=== PATIENT | female | born 1965 | race American Indian/Alaskan Native ===

== ENCOUNTER 2019-09-06 14:29 | Emergency (ER) | payer SELFPAY ==
[2019-09-06] MEDS ORDERED: PROVENTIL IH ONE (14:45)
[2019-09-06] MEDS ORDERED: ATROVENT IH ONE (14:45)
[2019-09-06] MEDS ORDERED: DECADRON IV ONE (14:45)
--- NOTE | 2019-09-06 14:46 | Emergency Department Report ---
Blank Doc - Documentation Documentation: 53-year-old female that presents with URI symptoms and wheezing. This initial assessment/diagnostic orders/clinical plan/treatment(s) is/are subject to change based on patient's health status, clinical progression and re- assessment by fellow clinical providers in the ED. Further treatment and workup at subsequent clinical providers discretion. Patient/guardians urged not to elope from the ED as their condition may be serious if not clinically assessed and managed. Initial orders include: 1- Patient sent to [facility] for further evaluation and treatment 2- breathing treatment/steroids 3- CXR
[2019-09-06] MEDS ORDERED: TESSALON PERLES PO ONE (15:21)
[2019-09-06] MEDS ORDERED: MORPHINE IV ONE (15:21)
[2019-09-06] MEDS ORDERED: ZOFRAN IV ONE (15:22)
[2019-09-06] MEDS ORDERED: ZOFRAN ODT PO ONE (15:56)
--- NOTE | 2019-09-06 17:36 | Emergency Department Report ---
ED Shortness of Breath HPI - General Chief Complaint: Dyspnea/Respdistress Stated Complaint: SOB Time Seen by Provider: 09/06/19 14:44 Source: patient, RN/MD Mode of arrival: Ambulatory Limitations: No Limitations - History of Present Illness Initial Comments: 53-year-old female with a past medical history of hypertension but has a house complaining of wheezing cough, shortness of breath and chest pain 2 days. Copy does of green sputum. Patient presents with wheezing and denies having a history of asthma or COPD. History of bronchospasm requiring inhaler use last year. She does not smoke cigarettes. She complains of a burning sensation to her throat and chest secondary to coughing. No fever reported. - Related Data Previous Rx's Medication Instructions Recorded Last Taken Type ALBUTEROL Inhaler (OR & NICU) 2 puff IH QID PRN #1 inhalation 09/06/19 Unknown Rx [ProAir HFA Inhaler] Azithromycin [Zithromax Z-CHINTAN] 1 dose PO DAILY 5 Days tab 09/06/19 Unknown Rx Benzonatate [Tessalon Perles] 100 mg PO Q8HR PRN #20 capsule 09/06/19 Unknown Rx HYDROcodone/APAP 5-325 [[place] 1 each PO Q6HR PRN #14 tablet 09/06/19 Unknown Rx 5/325] Prednisone [predniSONE 10 mg 10 mg PO .TAPER #1 tab.ds.pk 09/06/19 Unknown Rx (6-Day Pack, 21 Tabs)] Allergies Allergy/AdvReac Type Severity Reaction Status Date / Time codeine Allergy Unknown Verified 09/06/19 14:31 Penicillins AdvReac Unknown Verified 09/06/19 14:31 ED Review of Systems ROS: Stated complaint: SOB Other details as noted in HPI Comment: All other systems reviewed and negative ED Past Medical Hx - Past Medical History Previous Medical History?: Yes Hx Hypertension: Yes - Social History Smoking Status: Never Smoker Substance Use Type: None - Medications Home Medications: Home Medications Medication Instructions Recorded Confirmed Last Taken Type ALBUTEROL Inhaler (OR & NICU) 2 puff IH QID PRN #1 inhalation 09/06/19 Unknown Rx [ProAir HFA Inhaler] Azithromycin [Zithromax Z-CHINTAN] 1 dose PO DAILY 5 Days tab 09/06/19 Unknown Rx Benzonatate [Tessalon Perles] 100 mg PO Q8HR PRN #20 capsule 10/21/19 Unknown Rx HYDROcodone/APAP 5-325 [[place] 1 each PO Q6HR PRN #14 tablet 09/06/19 Unknown Rx 5/325] Prednisone [predniSONE 10 mg 10 mg PO .TAPER #1 tab.ds.pk 09/06/19 Unknown Rx (6-Day Pack, 21 Tabs)] ED Physical Exam - General Limitations: No Limitations - Other Other exam information: Gen.: No acute distress Head: Atraumatic Eyes: Normal appearance ENT: Moist mucous membranes Neck: Normal appearance, no posterior midline tenderness, no meningismus Chest: Tachypnea, bilateral wheezing, anterior chest wall tenderness Cardiovascular: Regular rate and rhythm Abdomen: Normal appearance, soft, nontender, no rebound or guarding, normal bowel sounds Back: Normal appearance, nontender Extremity: Full range of motion, normal appearance, no calf tenderness or edema Neuro: Alert oriented 3, clear speech, no focal motor or sensory deficit Psychiatric: Appropriate Skin: No rash ED Course Vital Signs 09/06/19 09/06/19 09/06/19 14:35 14:45 17:02 Temperature 99.3 F 99.3 F Pulse Rate [ 89 Posterior Bilateral Throughout] Respiratory 22 Rate Respiratory 20 Rate [Posterior Bilateral Throughout] Blood Pressure 186/95 O2 Sat by Pulse 99 Oximetry ED Medical Decision Making - Radiology Data Radiology results: report reviewed (cxr: naf ) - Medical Decision Making Symptoms improved with Decadron, albuterol, Atrovent, and Tessalon Perles. Declined morphine because she is driving Discharge medication acute bronchitis and Z-Chintan Follow-up advised - Differential Diagnosis asthma, COPD, pneumonia, bronchitis Critical Care Time: No Critical care attestation.: If time is entered above; I have spent that time in minutes in the direct care of this critically ill patient, excluding procedure time. ED Disposition Clinical Impression: Acute bronchitis Disposition: DC-01 TO HOME OR SELFCARE Is pt being admited?: No Does the pt Need Aspirin: No Condition: Stable Instructions: Acute Bronchitis (ED) Additional Instructions: Take the medication as prescribed. Follow-up with your doctor or with the doctor/clinic provided. Return if symptoms worsen as indicated by your discharge instructions. Prescriptions: HYDROcodone/APAP 5-325 [[place] 5/325] 1 each PO Q6HR PRN #14 tablet PRN Reason: Pain Prednisone [predniSONE 10 mg (6-Day Pack, 21 Tabs)] 10 mg PO .TAPER #1 tab.ds.pk ALBUTEROL Inhaler (OR & NICU) [ProAir HFA Inhaler] 2 puff IH QID PRN #1 inhalation PRN Reason: Shortness Of Breath Benzonatate [Tessalon Perles] 100 mg PO Q8HR PRN #20 capsule PRN Reason: Cough Azithromycin [Zithromax Z-CHINTAN] 1 dose PO DAILY 5 Days tab Referrals: SIMONA OBRIEN MD [Staff Physician] - 3-5 Days [facility] [Provider Group] - 3-5 Days Time of Disposition: 17:46
--- NOTE | 2019-09-06 17:45 | XRay Report ---
CHEST 2 VIEWS INDICATION: cough/sob. COMPARISON: None. FINDINGS: Support devices: None. Heart: Within normal limits. Lungs/Pleura: No acute air space or interstitial disease. No significant pleural effusion. IMPRESSION: No acute findings. Signer Name: Uriel Hubbard MD Signed: 09/06/2019 5:41 PM Workstation Name: [id number]
[2019-09-06 18:12] VITALS: BP 164/89
== END 2019-09-06 18:10 | disposition home or self-care (01) ==
LOC: ED 14:29
DX: J20.9 Acute bronchitis, unspecified (principal); I10 Essential (primary) hypertension; Z88.5 Allergy status to narcotic agent; Z88.0 Allergy status to penicillin
CPT/HCPCS: 71046; 94644; 96374; 99283; J1100; Q0162

== ENCOUNTER 2019-11-26 12:18 | Emergency (ER) | payer SELFPAY ==
[2019-11-26] MEDS ORDERED: IBUPROFEN 600 MG TAB PO ONE (13:20)
[2019-11-26] MEDS ORDERED: SODIUM CHLORIDE 0.9% 1000 ML 1,000 ML IV ONE ×2 (13:21→13:45)
[2019-11-26] MEDS ORDERED: ONDANSETRON 4 MG/2 ML INJ IV ONE ×2 (13:22→13:45)
[2019-11-26 13:25] VITALS: BP 152/132
--- NOTE | 2019-11-26 13:25 | Event Note ---
ED Screening Note Date of service: 11/26/19 Time: 13:23 ED Screening Note: 54 y/o female comes in with flu like symptoms for 2 days. F[place] get her flu vaccine. This initial assessment/diagnostic orders/clinical plan/treatment(s) is/are subject to change based on patients health status, clinical progression and re- assessment by fellow clinical providers in the ED. Further treatment and workup at subsequent clinical providers discretion. Patient/guardian urged not to elope from the ED as their condition may be serious if not clinically assessed and managed. Initial orders include:
[2019-11-26] MEDS ORDERED: fentaNYL 100 MCG/2 ML INJ IV ONE ×2 (13:45→15:20)
[2019-11-26] MEDS ORDERED: KETOROLAC 30 MG/1 ML INJ IV ONE (13:45)
--- NOTE | 2019-11-26 13:52 | Emergency Department Report ---
HPI - General Chief Complaint: Fever Time Seen by Provider: 11/26/19 13:19 - HPI HPI: Room 34 The patient is a 54-year-old female presenting with a chief complaint of cough and fever. Patient states 2 days ago she developed cough productive sputum rhin orrhea body aches and subjective fever. Patient states she's had intractable nausea and vomiting since yesterday. Patient states she was sent home from work for complaints. There are no known sick contacts. Location: [See above] Duration: [See above] Quality: [See above] Severity: [See above] Timing: [See above] Context: [See above] Modifying factors: [See above] Associated signs and symptoms: [see above] ED Past Medical Hx - Past Medical History Hx Hypertension: Yes - Surgical History Past Surgical History?: No - Family History Family history: no significant - Social History Smoking Status: Former Smoker (none 6 years) Substance Use Type: None - Medications Home Medications: Home Medications Medication Instructions Recorded Confirmed Last Taken Type Albuterol INH(or & Nicu Only) 2 puff IH QID PRN #1 inhalation 09/06/19 Unknown Rx [ProAir HFA Inhaler] Azithromycin [Zithromax Z-CHINTAN] 1 dose PO DAILY 5 Days tab 09/06/19 Unknown Rx Benzonatate [Tessalon Perles] 100 mg PO Q8HR PRN #20 capsule 09/06/19 Unknown Rx HYDROcodone/APAP 5-325 [[place] 1 each PO Q6HR PRN #14 tablet 09/06/19 Unknown Rx 5/325] Prednisone [predniSONE 10 mg 10 mg PO .TAPER #1 tab.ds.pk 09/06/19 Unknown Rx (6-Day Pack, 21 Tabs)] Benzonatate [Tessalon Perles] 100 mg PO Q8HR #30 capsule 11/26/19 Unknown Rx Ciprofloxacin HCl [Ciprofloxacin 500 mg PO Q12HR #20 tab 11/26/19 Unknown Rx TAB] HYDROcodone/APAP 5-325 [[place] 1 - 2 each PO Q6HR PRN #14 tablet 11/26/19 Unknown Rx 5/325] Ibuprofen [Motrin 800 MG tab] 800 mg PO Q8HR PRN #20 tablet 11/26/19 Unknown Rx Promethazine [Phenergan] 25 mg PO Q6HR PRN #20 tab 11/26/19 Unknown Rx Promethazine [Phenergan] 25 mg [place] Q6HR PRN #5 supp.rect 11/26/19 Unknown Rx ED Review of Systems ROS: Stated complaint: FLU SX Other details as noted in HPI Constitutional: fever (subjective) Eyes: denies: eye pain ENT: throat pain Respiratory: cough Endocrine: no symptoms reported Gastrointestinal: nausea, vomiting Genitourinary: denies: dysuria Musculoskeletal: back pain, myalgia Neurological: denies: headache Physical Exam - Physical Exam Vital Signs: Vital Signs 11/26/19 11/26/19 13:07 13:21 Temperature 92.7 F L 102.7 F H Pulse Rate 101 H 100 H Respiratory 18 20 Rate Blood Pressure 138/82 152/132 O2 Sat by Pulse 98 100 Oximetry Physical Exam: GENERAL: The patient is well-developed well-nourished female lying on stretcher appearing to be in moderate discomfort. [] HEENT: Normocephalic. Atraumatic. Extraocular motions are intact. Patient has moist mucous membranes. NECK: Supple. No meningitic signs are noted. Trachea midline CHEST/LUNGS: Clear to auscultation. There is no respiratory distress noted. Frequent cough HEART/CARDIOVASCULAR: Regular. There is no tachycardia. There is no gallop rub or murmur. ABDOMEN: Abdomen is soft, nontender. Patient has normal bowel sounds. There is no abdominal distention. SKIN: There is no rash. There is no edema. There is no diaphoresis. NEURO: The patient is awake, alert, and oriented. The patient is cooperative. The patient has normal speech MUSCULOSKELETAL:There is no evidence of acute injury. ED Course Vital Signs 11/26/19 11/26/19 13:07 13:21 Temperature 92.7 F L 102.7 F H Pulse Rate 101 H 100 H Respiratory 18 20 Rate Blood Pressure 138/82 152/132 O2 Sat by Pulse 98 100 Oximetry - Reevaluation(s) Reevaluation #1: 11/26/19 15:31 Patient states she is feeling improved ED Medical Decision Making - Lab Data Result diagrams: 11/26/19 14:40 11/26/19 14:40 Laboratory Tests 11/26/19 11/26/19 11/26/19 14:40 14:40 Unknown WBC 5.0 RBC 5.54 H Hgb 13.8 Hct 44.0 H MCV 80 MCH 25 L MCHC 31 RDW 14.7 Plt Count 182 Lymph % (Auto) 20.7 Porter % (Auto) 15.3 H Eos % (Auto) 0.0 Baso % (Auto) 0.8 Lymph # 1.0 L Porter # 0.8 Eos # 0.0 Baso # 0.0 Seg Neutrophils % 63.2 Seg Neutrophils # 3.2 Sodium 135 L Potassium 4.4 Chloride 97.6 L Carbon Dioxide 20 L Anion Gap 22 BUN 12 Creatinine 0.8 Estimated GFR > 60 BUN/Creatinine Ratio 15 Glucose 108 H Calcium 9.3 Total Bilirubin 0.80 AST 95 H ALT 71 H Alkaline Phosphatase 99 Total Protein 8.0 Albumin 4.0 Albumin/Globulin Ratio 1.0 Influenza A (Rapid) Negative Influenza B (Rapid) Negative - Radiology Data Radiology results: report reviewed (chest x-ray), image reviewed (chest x-ray) interpreted by me: Chest x-ray-no focal infiltrates, no pneumothorax [facility] [address] [place] [address] XRay Report Signed Patient: MARIA L ESQUIVEL MR#: [id number] : 1965 Acct:[id number] Age/Sex: 54 / F ADM Date: 11/26/19 Loc: ED Attending Dr: Ordering Physician: CAROLINA DONATO MD Date of Service: 11/26/19 Procedure(s): XR chest routine 2V Accession Number(s): [id number] cc: CAROLINA DONATO MD Fluoro Time In Minutes: CHEST 2 VIEWS INDICATION: productive cough. COMPARISON: 09/06/2019 FINDINGS: Support devices: None. Heart: Within normal limits. Lungs/pleura: No acute air space or interstitial disease. No pneumothorax. Additional findings: None. IMPRESSION: No acute findings. Signer Name: Javi Henry Jr, MD Signed: 11/26/2019 2:06 PM Workstation Name: [id number] Transcribed By: TTR Dictated By: JAVI HENRY JR, MD Electronically Authenticated By: JAVI HENRY JR, MD Signed Date/Time: 11/26/19 1406 DD/ 140 TD/TT: - Differential Diagnosis influenza, pneumonia, bronchitis Critical care attestation.: If time is entered above; I have spent that time in minutes in the direct care of this critically ill patient, excluding procedure time. ED Disposition Clinical Impression: Acute bronchitis, Nausea & vomiting Disposition: DC-01 TO HOME OR SELFCARE Is pt being admited?: No Does the pt Need Aspirin: No Condition: Stable Instructions: Acute Bronchitis (ED) Additional Instructions: Return to the emergency department should you develop worsening symptoms, inability to tolerate food or liquids, high fever or any other concerns Prescriptions: Ciprofloxacin HCl [Ciprofloxacin TAB] 500 mg PO Q12HR #20 tab Ibuprofen [Motrin 800 MG tab] 800 mg PO Q8HR PRN #20 tablet PRN Reason: Pain, Moderate (4-6) HYDROcodone/APAP 5-325 [[place] 5/325] 1 - 2 each PO Q6HR PRN #14 tablet PRN Reason: Pain Promethazine [Phenergan] 25 mg PO Q6HR PRN #20 tab PRN Reason: Nausea Promethazine [Phenergan] 25 mg NC Q6HR PRN #5 supp.rect PRN Reason: Vomiting Benzonatate [Tessalon Perles] 100 mg PO Q8HR #30 capsule Referrals: [facility] [Outside] - 3-5 Days Time of Disposition: 15:31
--- NOTE | 2019-11-26 14:11 | XRay Report ---
CHEST 2 VIEWS INDICATION: productive cough. COMPARISON: 09/06/2019 FINDINGS: Support devices: None. Heart: Within normal limits. Lungs/pleura: No acute air space or interstitial disease. No pneumothorax. Additional findings: None. IMPRESSION: No acute findings. Signer Name: Javi Greer Jr, MD Signed: 11/26/2019 2:06 PM Workstation Name: [id number]
[2019-11-26 14:56] LABS: Basophils % (Auto) 0.8 % (0.0-1.8); Hemoglobin 13.8 gm/dl (10.1-14.3); Lymphocytes % (Auto) 20.7 % (13.4-35.0); Mean Corpuscular HGB Conc 31 % (30-34); Mean Corpuscular Volume 80 fl (79-97); Monocytes # (Auto) 0.8 K/mm3 (0.0-0.8); Monocytes % (Auto) 15.3 % (0.0-7.3); Platelet Count 182 K/mm3 (140-440); Red Blood Count 5.54 M/mm3 (3.65-5.03); Red Cell Distribution Width 14.7 % (13.2-15.2)
[2019-11-26 15:23] LABS: Alanine Aminotransferase 71 units/L (7-56); BUN/Creatinine Ratio 15; Blood Urea Nitrogen 12 mg/dL (7-17); Calcium 9.3 mg/dL (8.4-10.2); Hemolysis Index 30
[2019-11-26] MEDS ORDERED: ACETAMINOPHEN 500 MG TAB PO ONE (15:25)
== END 2019-11-26 15:51 | disposition home or self-care (01) ==
LOC: ED 12:18
DX: J20.9 Acute bronchitis, unspecified (principal); R11.2 Nausea with vomiting, unspecified; I10 Essential (primary) hypertension; Z87.891 Personal history of nicotine dependence; Z79.899 Other long term (current) drug therapy; Z88.5 Allergy status to narcotic agent; Z88.0 Allergy status to penicillin
CPT/HCPCS: 36415; 71046; 80053; 85025; 87400; 96361; 96374; 96375; 96376; 99284; J1885; J2405; J3010; J7030

== ENCOUNTER 2020-01-27 13:49 | Emergency (ER) | payer SELFPAY ==
--- NOTE | 2020-01-27 15:08 | Emergency Department Report ---
Blank Doc - Documentation Documentation: 54-year-old female that presents with right sided rib pain s/p trip and fall. Denies any other injuries or trauma. This initial assessment/diagnostic orders/clinical plan/treatment(s) is/are subject to change based on patient's health status, clinical progression and re-assessment by fellow clinical providers in the ED. Further treatment and workup at subsequent clinical providers discretion. Patient/guardians urged not to elope from the ED as their condition may be serious if not clinically assessed and managed. Initial orders include: 1- Patient sent to [facility] for further evaluation and treatment 2- Xrays
[2020-01-27 15:09] VITALS: BP 149/85
--- NOTE | 2020-01-27 16:05 | XRay Report ---
RIGHT RIBS AND CHEST X-RAY 3 VIEWS INDICATION / CLINICAL INFORMATION: sob and rib pain s/p fall. COMPARISON: 11/26/2019 FINDINGS: No significant skeletal abnormality. No evidence of a right-sided pneumothorax. Signer Name: Roberto De La Cruz MD FACR Signed: 01/27/2020 4:00 PM Workstation Name: [id number]
[2020-01-27] MEDS ORDERED: IBUPROFEN 800 MG TAB PO ONE (16:24)
--- NOTE | 2020-01-27 16:29 | Emergency Department Report ---
ED General Adult HPI - General Chief complaint: Chest Pain Stated complaint: POSS BROKE RIB/SOB Time Seen by Provider: 01/27/20 15:06 Source: patient Mode of arrival: Ambulatory Limitations: No Limitations - History of Present Illness Initial comments: This is a 54-year-old female presents the ED complaining of right-sided costal pain that began Friday. Patient states that she fell down had a ground-level fall on Friday and hit her chest. Patient states that she was stepping out of her bathroom when she accidentally slipped and hit her ribs against the sink. Patient states that this symptom happened last Friday. Patient denies noticing any bruising or laceration or bleeding to the chest Patient states she has had some sore aching to the chest area since that incident. She denies eating her head or any other trauma. She denies blurry vision, dizziness, vomiting or any other symptoms. - Related Data Previous Rx's Medication Instructions Recorded Last Taken Type Azithromycin [Zithromax Z-CHINTAN] 1 dose PO DAILY 5 Days tab 09/06/19 Unknown Rx HYDROcodone/APAP 5-325 [[place] 1 each PO Q6HR PRN #14 tablet 09/06/19 Unknown Rx 5/325] Prednisone [predniSONE 10 mg 10 mg PO .TAPER #1 tab.ds.pk 09/06/19 Unknown Rx (6-Day Pack, 21 Tabs)] Benzonatate [Tessalon Perles] 100 mg PO Q8HR #30 capsule 11/26/19 Unknown Rx Ciprofloxacin HCl [Ciprofloxacin 500 mg PO Q12HR #20 tab 11/26/19 Unknown Rx TAB] HYDROcodone/APAP 5-325 [[place] 1 - 2 each PO Q6HR PRN #14 tablet 11/26/19 Unknown Rx 5/325] Promethazine [Phenergan] 25 mg PO Q6HR PRN #20 tab 11/26/19 Unknown Rx Promethazine [Phenergan] 25 mg [place] Q6HR PRN #5 supp.rect 11/26/19 Unknown Rx Albuterol INH(or & Nicu Only) 2 puff IH QID PRN #1 inhalation 01/27/20 Unknown Rx [ProAir HFA Inhaler] Benzonatate [Tessalon Perles] 100 mg PO Q8HR PRN #20 capsule 01/27/20 Unknown Rx Cyclobenzaprine [Flexeril] 10 mg PO QHS #20 tablet 01/27/20 Unknown Rx Ibuprofen [Motrin 800 MG tab] 800 mg PO Q8HR PRN #20 tablet 01/27/20 Unknown Rx amLODIPine 10 mg PO DAILY #30 tab 01/27/20 Unknown Rx Allergies Allergy/AdvReac Type Severity Reaction Status Date / Time codeine Allergy Unknown Verified 09/06/19 14:31 Penicillins AdvReac Unknown Verified 09/06/19 14:31 ED Review of Systems ROS: Stated complaint: POSS BROKE RIB/SOB Other details as noted in HPI Comment: All other systems reviewed and negative ED Past Medical Hx - Past Medical History Hx Hypertension: Yes - Surgical History Past Surgical History?: No - Social History Smoking Status: Former Smoker Substance Use Type: None - Medications Home Medications: Home Medications Medication Instructions Recorded Confirmed Last Taken Type Azithromycin [Zithromax Z-CHINTAN] 1 dose PO DAILY 5 Days tab 09/06/19 Unknown Rx HYDROcodone/APAP 5-325 [[place] 1 each PO Q6HR PRN #14 tablet 09/06/19 Unknown Rx 5/325] Prednisone [predniSONE 10 mg 10 mg PO .TAPER #1 tab.ds.pk 09/06/19 Unknown Rx (6-Day Pack, 21 Tabs)] Benzonatate [Tessalon Perles] 100 mg PO Q8HR #30 capsule 11/26/19 Unknown Rx Ciprofloxacin HCl [Ciprofloxacin 500 mg PO Q12HR #20 tab 11/26/19 Unknown Rx TAB] HYDROcodone/APAP 5-325 [[place] 1 - 2 each PO Q6HR PRN #14 tablet 11/26/19 Unknown Rx 5/325] Promethazine [Phenergan] 25 mg PO Q6HR PRN #20 tab 11/26/19 Unknown Rx Promethazine [Phenergan] 25 mg [place] Q6HR PRN #5 supp.rect 11/26/19 Unknown Rx Albuterol INH(or & Nicu Only) 2 puff IH QID PRN #1 inhalation 01/27/20 Unknown Rx [ProAir HFA Inhaler] Benzonatate [Tessalon Perles] 100 mg PO Q8HR PRN #20 capsule 01/27/20 Unknown Rx Cyclobenzaprine [Flexeril] 10 mg PO QHS #20 tablet 01/27/20 Unknown Rx Ibuprofen [Motrin 800 MG tab] 800 mg PO Q8HR PRN #20 tablet 01/27/20 Unknown Rx amLODIPine 10 mg PO DAILY #30 tab 01/27/20 Unknown Rx ED Physical Exam - General Limitations: No Limitations General appearance: alert, in no apparent distress - Head Head exam: Present: atraumatic, normocephalic - Eye Eye exam: Present: normal appearance - ENT ENT exam: Present: mucous membranes moist - Neck Neck exam: Present: normal inspection - Respiratory Respiratory exam: Present: normal lung sounds bilaterally, chest wall tenderness (On the right lower costal region. No ecchymosis, no bruising). Absent: respiratory distress, wheezes, rales, accessory muscle use - Cardiovascular Cardiovascular Exam: Present: regular rate, normal rhythm. Absent: systolic murmur, diastolic murmur, rubs, gallop - GI/Abdominal GI/Abdominal exam: Present: soft, normal bowel sounds - Extremities Exam Extremities exam: Present: normal inspection - Back Exam Back exam: Present: normal inspection - Neurological Exam Neurological exam: Present: alert, oriented X3 - Psychiatric Psychiatric exam: Present: normal affect, normal mood - Skin Skin exam: Present: warm, dry, intact, normal color. Absent: rash ED Course Vital Signs 01/27/20 01/27/20 15:06 16:50 Temperature 98.6 F Pulse Rate 93 H Respiratory 20 18 Rate Blood Pressure 149/85 O2 Sat by Pulse 97 Oximetry ED Medical Decision Making - Radiology Data Radiology results: report reviewed, image reviewed Fluoro Time In Minutes: RIGHT RIBS AND CHEST X-RAY 3 VIEWS INDICATION / CLINICAL INFORMATION: sob and rib pain s/p fall. COMPARISON: 11/26/2019 FINDINGS: No significant skeletal abnormality. No evidence of a right-sided pneumothorax. Signer Name: Roberto De La Cruz MD FACR Signed: 01/27/2020 4:00 PM Workstation Name: [id number] Transcribed By: MS Dictated By: Roberto De La Cruz MD Electronically Authenticated By: Roberto De La Cruz MD Signed Date/Time: 01/27/20 1600 - Medical Decision Making 54-year-old female presents with rib contusion. Vital signs are normal patient is in no acute distress Rib detail shows no acute fractures. Discussed with patient appropriate rest, no heavy lifting no twisting of vigorous activities for the next couple of days to week. Discussed with patient follow-up with primary care physician. Vital signs are normal patient is in no acute distress., Critical care attestation.: If time is entered above; I have spent that time in minutes in the direct care of this critically ill patient, excluding procedure time. ED Disposition Clinical Impression: Acute chest wall pain, Fall Disposition: DC-01 TO HOME OR SELFCARE Is pt being admited?: No Does the pt Need Aspirin: No Condition: Stable Instructions: Chest Pain (ED), Costochondritis (ED) Additional Instructions: Make sure to follow up with the primary care physician as discussed. Take all your medications as you've been prescribed. If you have any worsening symptoms or develop new symptoms please return to ED immediately. Prescriptions: Cyclobenzaprine [Flexeril] 10 mg PO QHS #20 tablet amLODIPine 10 mg PO DAILY #30 tab Ibuprofen [Motrin 800 MG tab] 800 mg PO Q8HR PRN #20 tablet PRN Reason: Pain, Moderate (4-6) Albuterol INH(or & Nicu Only) [ProAir HFA Inhaler] 2 puff IH QID PRN #1 inhalation PRN Reason: Shortness Of Breath Benzonatate [Tessalon Perles] 100 mg PO Q8HR PRN #20 capsule PRN Reason: Cough Referrals: [facility] [Outside] - 3-5 Days [facility] [Outside] - 3-5 Days [facility] [Outside] - 3-5 Days Forms: Work/School Release Form(ED)
== END 2020-01-27 17:00 | disposition home or self-care (01) ==
LOC: ED 13:49
DX: R07.89 Other chest pain (principal); I10 Essential (primary) hypertension; Z87.891 Personal history of nicotine dependence; W18.30XA Fall on same level, unspecified, initial encounter; Y93.89 Activity, other specified; Y92.89 Other specified places as the place of occurrence of the external cause; Y99.8 Other external cause status
CPT/HCPCS: 99283